=== PATIENT | female | born 1965 | race Caucasian/White ===

== ENCOUNTER 2016-07-14 09:50 | Emergency (ER) | payer BC ==
[2016-07-14 10:05] VITALS: TEMP 97.5; BMI 34.5
[2016-07-14] MEDS ORDERED: MECLIZINE HCL 25 MG TABLET (FP) PO ONE ×2 (10:30→12:37)
[2016-07-14] MEDS ORDERED: SODIUM CHLORIDE 1,000 ML IV STA (10:43)
[2016-07-14] MEDS ORDERED: MECLIZINE HCL 25 MG TABLET (FP) ONE (10:45)
--- NOTE | 2016-07-14 11:04 | PDOC ---
History of Present Illness - General Chief Complaint: Lightheaded Stated Complaint: DIZZINESS Time Seen by Provider: 07/14/16 09:56 History Source: Patient Exam Limitations: No Limitations - History of Present Illness Initial Comments: 07/14/16 11:04 51-year-old female presents the ED with complaints of dizziness upon awakening this morning. Patient states felt as if the room was spinning and had to hold onto furniture. Patient states then went into the shower she started to have dry heaving secondary to nausea and subsided when she sat down in the chair but then returned and worsened while at work and so decided come to the ER. Patient denies previous episodes, recent dental work, recent ear infections, chest pain , shortness of breath, visual changes, or headache. Timing/Duration: reports: waxing and waning Severity: Yes: moderate Associated Symptoms: reports: nausea/vomiting Past History - Past Medical History Allergies/Adverse Reactions: Allergies Allergy/AdvReac Type Severity Reaction Status Date / Time No Known Allergies Allergy Verified 05/08/15 10:56 Home Medications: Ambulatory Orders NK [No Known Home Medication] 07/14/16 Anemia: Yes (2012-TREATED) Asthma: No Cancer: No Cardiac Disorders: No CVA: No COPD: No CHF: No Dementia: No Diabetes: No GI Disorders: Yes (GERD) Disorders: No HTN: No Hypercholesterolemia: Yes (NO MEDS) Liver Disease: No Seizures: No Thyroid Disease: No - Surgical History Abdominal Surgery: No Appendectomy: No Cardiac Surgery: No Cholecystectomy: No GI Surgery: Yes (lap band) Lung Surgery: No Neurologic Surgery: No Orthopedic Surgery: Yes (LEFT [id number] LOCAL) - Psycho/Social/Smoking Cessation Hx Anxiety: No Suicidal Ideation: No Smoking History: Never smoked Have you smoked in the past 12 months: No Information on smoking cessation initiated: No Hx Alcohol Use: No Drug/Substance Use Hx: No Substance Use Type: Alcohol Hx Substance Use Treatment: No Patient Lives Alone: No Review of Systems - Review of Systems Constitutional: No: Symptoms Reported HEENTM: No: Symptoms Reported Respiratory: No: SOB with Exertion Cardiac (ROS): Yes: Lightheadedness ABD/GI: Yes: Nausea : No: Symptoms Reported Musculoskeletal: No: Symptoms Reported Integumentary: No: Symptoms Reported Neurological: Yes: Dizziness. No: Weakness, Unsteady Gait Endocrine: No: Symptoms Reported Hematologic/Lymphatic: No: Symptoms Reported *Physical Exam - Vital Signs Last Vital Signs Temp Pulse Resp BP Pulse Ox 97.5 F L 70 20 125/70 100 07/14/16 09:56 07/14/16 09:56 07/14/16 09:56 07/14/16 09:56 07/14/16 09:56 - Physical Exam General Appearance: Yes: Nourished, Appropriately Dressed. No: Apparent Distress HEENT: positive: EOMI, [place], TMs Normal, Pharynx Normal. negative: Pale Conjunctivae Neck: positive: Normal Thyroid, Supple Respiratory/Chest: positive: Lungs Clear, Normal Breath Sounds. negative: Respiratory Distress, Accessory Muscle Use Cardiovascular: positive: Regular Rhythm, Regular Rate. negative: Murmur Gastrointestinal/Abdominal: positive: Soft. negative: Tenderness Musculoskeletal: negative: CVA Tenderness Extremity: positive: Normal Capillary Refill. negative: Pedal Edema Integumentary: positive: Normal Color, Warm, Moist Neurologic: positive: Motor Strength 5/5 (ambulatory), Other (positive Hallpike' s to the right). negative: Sensory Deficit Heart Score/ECG Review - History History: Slightly suspicious - Electrocardiogram EKG: Normal - Age Age: 45-65 - Risk Factors Risk Factors Heart Score: Yes Hx Obesity Based on the list above the patient has:: 1-2 risk factors - Troponin Troponin: </= normal limit - Score Heart Score - Total: 2 - ECG Intrepretation Rhythm: Regular Rhythm (Rate 67. Normal sinus rhythm. No ST elevation or depression) ED Treatment Course - LABORATORY CBC & Chemistry Diagram: 07/14/16 10:30 07/14/16 10:07 - RADIOLOGY Radiology Studies Ordered: Category Date Time Status HEAD CT WITHOUT CONTRAST [CT] Stat CT Scan 07/14/16 10:31 Ordered CHEST X-RAY PORTABLE* [RAD] Stat Radiology 07/14/16 10:30 Ordered - Medications Given in the ED: ED Medications Discontinued Medications Generic Name Dose Route Start Last Admin Trade Name Freq PRN Reason Stop Dose Admin Meclizine HCl 25 mg 07/14/16 10:30 07/14/16 10:54 Antivert - PO 07/14/16 10:31 25 mg ONCE ONE Administration Medical Decision Making - Medical Decision Making 07/14/16 11:44 patient here complaints of positional dizziness since awakening this morning. Patient on exam was positive Hallpike to the right. Patient was slightly orthostatic upon standing. Patient ordered labs, urine, EKG, chest x-ray, head CT, IV fluids, and meclizine. 07/14/16 12:38 Laboratory Tests 07/14/16 07/14/16 07/14/16 10:07 10:30 10:30 WBC 7.3 Hgb 12.6 Hct 37.3 Plt Count 245 Neutrophils % 77.0 Sodium 140 Potassium 4.5 Chloride 102 Carbon Dioxide 27 Anion Gap 11 BUN 15 Random Glucose 101 Calcium 9.1 Total Bilirubin 1.0 AST 16 ALT 28 Creatine Kinase 57 Troponin I < 0.02 Urine Ketones Urine Nitrite Ur Leukocyte Esterase 07/14/16 11:20 WBC Hgb Hct Plt Count Neutrophils % Sodium Potassium Chloride Carbon Dioxide Anion Gap BUN Random Glucose Calcium Total Bilirubin AST ALT Creatine Kinase Troponin I Urine Ketones Negative Urine Nitrite Negative Ur Leukocyte Esterase Negative Patient states moderate relief but still had mild dizziness when she stood up to go to the bathroom just now. Patient will be given additional 12.5 of meclizine. 07/14/16 13:[address] negative for acute findings. Patient will be reevaluated and revitalize. 07/14/16 15:25 She was able to ambulate with me to the bathroom without any complaints. Patient states feeling much better after receiving the additional 12.5 mg. Patient will be discharged home with meclizine and follow-up to neurology. *DC/Admit/Observation/Transfer Diagnosis at time of Disposition: Vertigo - Discharge Dispostion Disposition: HOME Condition at time of disposition: Improved - Referrals Referrals: Danny Guerrero DO [Staff Physician] - - Patient Instructions Printed Discharge Instructions: DI for Benign Paroxysmal Positional Vertigo Additional Instructions: Please follow up with referred neurologist and take meclizine as discussed. Please also get up in increments as discussed and return to ED if symptoms worsen.
[2016-07-14 11:17] LABS: BASOPHIL 0.2 % (0-2.0); EOSINOPHIL 0.5 % (0-4.5); MCHC 33.8 g/dl (32.0-36.0); MEAN CELL VOLUME 85.9 fl (80-96); MEAN PLT VOLUME 8.6 fl (7.5-11.1); PLATELET COUNT 245 K/MM3 (134-434); RDW 14.4 % (11.6-15.6); WHITE BLOOD COUNT 7.3 K/mm3 (4.0-10.0)
--- NOTE | 2016-07-14 11:26 | PDOC ---
*Physical Exam - Vital Signs Last Vital Signs Temp Pulse Resp BP Pulse Ox 97.5 F L 70 20 125/70 100 07/14/16 09:56 07/14/16 09:56 07/14/16 09:56 07/14/16 09:56 07/14/16 09:56 ED Treatment Course - LABORATORY CBC & Chemistry Diagram: 07/14/16 10:30 07/14/16 10:07 - ADDITIONAL ORDERS Additional order review: 07/14/16 10:30 RBC 4.34 MCV 85.9 MCHC 33.8 RDW 14.4 MPV 8.6 Neutrophils % 77.0 Lymphocytes % 16.5 Monocytes % 5.8 Eosinophils % 0.5 Basophils % 0.2 - Medications Given in the ED: ED Medications Discontinued Medications Generic Name Dose Route Start Last Admin Trade Name Freq PRN Reason Stop Dose Admin Meclizine HCl 25 mg 07/14/16 10:30 07/14/16 10:54 Antivert - PO 07/14/16 10:31 25 mg ONCE ONE Administration Medical Decision Making - Medical Decision Making 07/14/16 11:26 Pt seen by the Advanced Practice Provider under my direct supervision Ancillary studies reviewed I agree with plan as outlined by the Advanced Practice Provider DALILA Nascimento
[2016-07-14 11:36] LABS: URINE APPEARANCE CLEAR; URINE BILIRUBIN NEGATIVE (NEGATIVE); URINE BLOOD NEGATIVE (NEGATIVE); URINE COLOR YELLOW; URINE GLUCOSE (UA) NEGATIVE (NEGATIVE); URINE KETONE NEGATIVE (NEGATIVE); URINE LEUK ESTERASE NEGATIVE (NEGATIVE); URINE NITRITE NEGATIVE (NEGATIVE); URINE PROTEIN NEGATIVE (NEGATIVE); URINE UROBILINOGEN NEGATIVE E.U./dl (0.2-1.0)
[2016-07-14 11:42] LABS: ALBUMIN 3.8 g/dl (3.4-5.0); ALK PHOS 74 U/L (45-117); ANION GAP 11 (8-16); CALCIUM 9.1 mg/dL (8.5-10.1); CO2 27 mmol/L (21-32); CREATININE 0.6 mg/dL (0.55-1.02); GLUCOSE,RANDOM 101 mg/dL (74-106); SGOT/AST 16 U/L (15-37); SGPT/ALT 28 U/L (12-78); TOT PROT 7.6 g/dl (6.4-8.2)
[2016-07-14 11:44] LABS: TROPONIN I < 0.02 ng/ml (0.00-0.05)
[2016-07-14] MEDS ORDERED: MECLIZINE HCL 12.5 MG TABLET ONE (12:41)
--- NOTE | 2016-07-14 15:36 | EKG ---
Test Reason : Blood Pressure : / mmHG Vent. Rate : 067 BPM Atrial Rate : 067 BPM P-R Int : 152 ms QRS Dur : 070 ms QT Int : 420 ms P-R-T Axes : 008 014 008 degrees QTc Int : 443 ms POOR DATA QUALITY, INTERPRETATION MAY BE ADVERSELY AFFECTED NORMAL SINUS RHYTHM CANNOT RULE OUT ANTERIOR INFARCT , AGE UNDETERMINED ABNORMAL ECG NO PREVIOUS ECGS AVAILABLE Confirmed by LISSETTE BECKMAN, DAO ([id number]) on 07/14/2016 3:36:41 PM Referred By: Confirmed By:DAO MCLAUGHLIN MD
[2016-07-14 15:44] VITALS: BP 120/60; PULSE 80
== END 2016-07-14 15:44 | disposition home or self-care (01) ==
LOC: JER 09:50
PROC: 3E0337Z Introduction of Electrolytic and Water Balance Substance into Peripheral Vein, Percutaneous Approach (ICD-10-PCS; principal; 2016-07-14)
DX: H81.11 Benign paroxysmal vertigo, right ear (principal)
CPT/HCPCS: 36415; 70450-TC; 71010-TC; 80053; 81003; 82550; 84484; 85025; 93005; 93010; 99284-25

== ENCOUNTER 2018-10-04 15:05 | Emergency (ER) | payer BC, OTHER ==
[2018-10-04 15:21] VITALS: BP 119/73; PULSE 106; TEMP 97.8; BMI 35.2
[2018-10-04] MEDS ORDERED: CYCLOBENZAPRINE HCL 10 MG TABLET (FP) PO ONE (15:22)
[2018-10-04] MEDS ORDERED: IBUPROFEN 600 MG TABLET (FP) PO ONE ×2 (15:22→15:33)
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
[2018-10-04] MEDS ORDERED: CYCLOBENZAPRINE HCL 10 MG TABLET (FP) ONE (15:33)
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
--- NOTE | 2018-10-05 11:46 | EKG ---
Test Reason : Blood Pressure : / mmHG Vent. Rate : 087 BPM Atrial Rate : 087 BPM P-R Int : 156 ms QRS Dur : 070 ms QT Int : 372 ms P-R-T Axes : 057 022 021 degrees QTc Int : 447 ms NORMAL SINUS RHYTHM NORMAL ECG WHEN COMPARED WITH ECG OF 14-JUL-2016 10:59, NONSPECIFIC T WAVE ABNORMALITY, IMPROVED IN ANTERIOR LEADS Confirmed by DAO MCLAUGHLIN MD ([id number]) on 10/05/2018 11:45:53 AM Referred By: Confirmed By:DAO MCLAUGHLIN MD
== END 2018-10-04 18:00 | disposition home or self-care (01) ==
LOC: JERFT 15:05
DX: Z04.1 Encounter for examination and observation following transport accident (principal); V43.52XA Car driver injured in collision with other type car in traffic accident, initial encounter; Y93.89 Activity, other specified; Y92.410 Unspecified street and highway as the place of occurrence of the external cause; Z98.84 Bariatric surgery status
CPT/HCPCS: 71046-TC-FY; 71111-TC-FY; 73030-TC-LT-FY; 73030-TC-RT-FY; 93005; 93010; 99282-25